=== PATIENT | female | born 1970 | race Caucasian/White ===

== ENCOUNTER 2017-10-30 23:37 | Emergency (ER) | payer MEDICAID ==
[2017-10-30 23:47] VITALS: BP 122/73; PULSE 73; RESP 18; TEMP 98.4; O2SAT 100
--- NOTE | 2017-10-31 00:06 | ED PDOC ---
Lower Extremity Pain/Injury Time Seen by Provider: 10/30/17 23:57 Chief Complaint (Nursing): Lower Extremity Problem/Injury Chief Complaint (Provider): right foot pain History Per: Patient History/Exam Limitations: no limitations Onset/Duration Of Symptoms: Hrs (1) Current Symptoms Are (Timing): Still Present Additional Complaint(s): 47 y/o female presents for evaluation of right foot painx 1 hour. Patient states she was walking down steps and twisted foot/ankle when stepping down. Pain worse with weight-bearing. Denies numbness/weakness right lower extremity. Little relief with Ibuprofen taken prior to arrival. Past Medical History Reviewed: Historical Data, Nursing Documentation, Vital Signs Vital Signs: Last Vital Signs Temp 98.4 F 10/30/17 23:45 Pulse 73 10/30/17 23:45 Resp 18 10/30/17 23:45 BP 122/73 10/30/17 23:45 Pulse Ox 100 10/30/17 23:45 - Medical History PMH: No Chronic Diseases - Surgical History Other surgeries: hysterectomy - Family History Family History: States: No Known Family Hx - Home Medications Home Medications: Ambulatory Orders Medication Instructions Recorded Ibuprofen [Motrin Tab] 1 tab PO Q6 PRN #20 tab 10/31/17 oxyCODONE/Acetaminophen [Percocet 1 ea PO Q6 PRN #12 tab 10/31/17 5/325 mg Tab] - Allergies Allergies/Adverse Reactions: Allergies Allergy/AdvReac Type Severity Reaction Status Date / Time No Known Allergies Allergy Verified 10/30/17 23:44 Review of Systems ROS Statement: Except As Marked, All Systems Reviewed And Found Negative Musculoskeletal: Positive for: Foot Pain (right) Physical Exam - Reviewed Nursing Documentation Reviewed: Yes Vital Signs Reviewed: Yes - Physical Exam Appears: Positive for: Well, Non-toxic, No Acute Distress Pulses-Dorsalis Pedis (L): 2+ Pulses-Dorsalis Pedis (R): 2+ Pulses-Post. Tibialis (L): 2+ Pulses-Post. Tibialis (R): 2+ Extremity: Positive for: Normal ROM, Swelling (swelling/ecchymosis/tenderness dorsal right foot overlying 4th-5th metatarsals. Pain with flexion/extension. Distal NV/motor intact) Neurologic/Psych: Positive for: Alert, Oriented. Negative for: Motor/Sensory Deficits - ECG O2 Sat by Pulse Oximetry: 100 - Other Rad right foot xray X-Ray: Viewed By [place] X-Ray Interpretation: +proximal right 5th metatarsal fx - Progress ED Course And Treament: xray, tylenol Percocet ordered for continued pain Patient evaluated by podiatry resident on-call, placed in splint. Crutches given with demonstration on non-weight bearing. Advised follow up with Dr. Que Robert. Patient educated on findings, discharged with instructions to follow up with podiatry as instructed by resident. Rx percocet, ibuprofen given Advised RICE Return precautions given Disposition - Clinical Impression Clinical Impression: Foot fracture, right - Patient ED Disposition Is Patient to be Admitted: No Counseled Patient/Family Regarding: Studies Performed, Diagnosis, Need For Followup, Rx Given - Disposition Referrals: Micha Jaimes MD [Primary Care Provider] - Que Robert DPM [Medical Doctor] - Disposition: Routine/Home Disposition Time: 02:51 Condition: STABLE Prescriptions: Ibuprofen [Motrin Tab] 1 tab PO Q6 PRN #20 tab PRN Reason: Pain, Moderate (4-7) oxyCODONE/Acetaminophen [Percocet 5/325 mg Tab] 1 ea PO Q6 PRN #12 tab PRN Reason: Pain, Severe (8-10) Instructions: Foot Fracture (DC) Forms: [facility] (Sinhala)
[2017-10-31] MEDS ORDERED: Oxycodone/Acetaminophen 5/325 mg Tab PO ONE (00:52)
[2017-10-31] MEDS ORDERED: Oxycodone/Acetaminophen 5/325 mg Tab ONE (00:55)
--- NOTE | 2017-10-31 02:50 | CP.PCM.CON ---
History of Present Illness - History of Present Illness History of Present Illness: Podiatry Consult Note: Dr. Robert 47 year old female with no significant PMHx was seen and evaluated at bedside for right foot pain. Patient reports that around 6 PM she was walking down the stairs and she tripped, twisted her foot and fell. Patient reports that in the beginning she was in a lot of pain and she took motrin which helped her a little with the pain and decided not to come to the hospital right away. Reports that overtime pain started getting worst and decided to change her mind and come to the ED. Patient reports that she did not walk on the foot after the injury. Denies of any other pedal complains at this time. Denies of having recent F/N/V/C/SOB/CP/headache/diarrhea. PMHx: Denies PSHx: hysterectomy Allergies: N.K.D.A SHx: Denies smoking, EtOH or illicit drug usage Review of Systems - Constitutional Constitutional: As Per HPI Past Patient History - Past Social History Smoking Status: Never Smoked - HEMATOLOGICAL/ONCOLOGICAL Hx Anemia: Yes Hx Blood Transfusions: Yes - PSYCHIATRIC Hx Substance Use: No - SURGICAL HISTORY Hx Hysterectomy: Yes - ANESTHESIA Hx Anesthesia: Yes Hx Anesthesia Reactions: No Hx Malignant Hyperthermia: No Meds Home Medications: Home Medication List Medication Instructions Recorded Confirmed Type Ibuprofen [Motrin Tab] 1 tab PO Q6 PRN #20 tab 10/31/17 Rx oxyCODONE/Acetaminophen [Percocet 1 ea PO Q6 PRN #12 tab 10/31/17 Rx 5/325 mg Tab] Allergies/Adverse Reactions: Allergies Allergy/AdvReac Type Severity Reaction Status Date / Time No Known Allergies Allergy Verified 10/30/17 23:44 Physical Exam - Constitutional Appears: Well, Non-toxic, No Acute Distress - Head Exam Head Exam: ATRAUMATIC - Extremities Exam Additional comments: Bilateral LE exam: VASC: DP/PT pulses are palpable 2/4, Cap refill time: < 3 sec to all digits, Temp gradient: warm to cool from proximal to distal, moderate non-pitting edema noted localized to the right dorsal foot DERM: No open lesions, no erythema, no clinical suspicion of active infection NEURO: Protective sensation grossly intact ORTHO: Pain on direct palpation over the base of the 5th metatarsal and styloid process, Patient is able to perform AROM at the ankle joint in all 4 direction with pain localized to the 5th metatarsal base, guarding during PROM at the ankle joint, MMT: 3/5 during DF, PF, inversion and eversion, no pain on palpation of the achilles tendon insertion or in the watershed area, no pain on palpation of the medial or lateral collateral ligament at the ankle joint, no pain on tib-fib squeeze test, prett test is negative - Neurological Exam Neurological exam: Alert, Oriented x3 - Psychiatric Exam Psychiatric exam: Normal Affect, Normal Mood Results - Vital Signs Recent Vital Signs: Last Vital Signs Temp 98.4 F 10/30/17 23:45 Pulse 73 10/30/17 23:45 Resp 18 10/30/17 23:45 BP 122/73 10/30/17 23:45 Pulse Ox 100 10/31/17 00:58 Assessment & Plan - Assessment and Plan (Free Text) Assessment: 47 year old female with no significant PMHx evaluated at bedside for right foot Vogt fracture Plan: Patient seen and evaluated Discussed plan with attending Dr. Robert X-rays of the right foot ordered/reviewed - transverse radiolucent line extending from medial to lateral with moderate gapping with no displacement noted at the metaphyseal-diapheseal junction of the 5th metatarsal base consistent with Vogt fracture pattern Vogt compression dressing applied Well padded posterior splint applied to the RLE Patient educated to remain NWB to the RLE using crutches Crutches dispensed Patient educated of the RICE protocol Educated to take anti-inflammatory if needed Patient educated of the treatment plan and possible need for the surgery Patient educated the importance of following up with the attending without fail Patient demonstrated verbal understanding of the plan - agrees with the plan Thank you for this interesting podiatry consult and allowing to take part in patient care - Date & Time Date: 10/31/17 Time: 02:10
--- NOTE | 2017-10-31 09:16 | RAD ---
PROCEDURE: Right Foot Radiographs. HISTORY: fall, pain 4th-5th metatarsals COMPARISON: None. FINDINGS: BONES: A minimally comminuted fracture - 5th metatarsal base with tarsal metacarpal intra-articular extension present. Plantar and Achilles Tendon insertion calcaneal spurs JOINTS: 1st metatarsal joint space narrowing -osteoarthrosis hallux valgus orientation. . Sesamoid bones laterally oriented SOFT TISSUES: Swelling over fracture OTHER FINDINGS: None. IMPRESSION: Fifth metatarsal base minimally comminuted fracture with intra-articular extension. No displacement.
== END 2017-10-31 03:08 | disposition home or self-care (01) ==
LOC: H.ER 23:37
DX: S92.901A Unspecified fracture of right foot, initial encounter for closed fracture (principal); W01.0XXA Fall on same level from slipping, tripping and stumbling without subsequent striking against object, initial encounter; Y92.89 Other specified places as the place of occurrence of the external cause; D64.9 Anemia, unspecified

== ENCOUNTER 2017-11-14 10:39 | Day surgery (SDC) | payer MEDICAID ==
[2017-11-08 08:50] VITALS: BMI 29.2
[2017-11-14] MEDS ORDERED: Bupivacaine 0.25% Inj(30mL) IJ ONE (11:20)
[2017-11-14] MEDS ORDERED: ceFAZolin 1 GM in Sodium Chloride 0.9% 100 ML IVPB ONE (11:20)
[2017-11-14] MEDS ORDERED: Lidocaine 1% Inj (20ml) IJ ONE ×3 (11:20→15:10)
[2017-11-14] MEDS ORDERED: Sodium Chloride 0.9% 1,000 ML IV SCH (11:30)
--- NOTE | 2017-11-14 11:34 | CP.PCM.PN ---
Subjective - Date & Time of Evaluation Date of Evaluation: 11/14/17 Time of Evaluation: 11:30 - Subjective Subjective: 47 year old female with PMHx of hypertension was seen and evaluated at bedside for right foot pain. Patient reports she walking up the stairs and she tripped, twisted her foot and fell on Saturday 11/11. Patient reports that in the beginning she was in a lot of pain and she took motrin which helped her a little with the pain, but decided to come to the ED later that evening due to worsening pain. Patients posterior splint and dressing is seen to be dry, clean and intact. Denies of any other pedal complains at this time. Patient denies eating anything after midnight. Denies of having recent F/N/V/C/SOB/CP/headache/ diarrhea. Medications: Losartan PSHx: hysterectomy, 3 . Allergies: N.K.D.A SHx: Denies smoking, EtOH or illicit drug usage Objective - Vital Signs/Intake and Output Vital Signs (last 24 hours): Temp Pulse Resp BP Pulse Ox 98.2 F 80 18 135/90 95 11/14/17 11:21 11/14/17 11:21 11/14/17 11:21 11/14/17 11:21 11/14/17 11:21 - Medications Medications: Current Medications Bupivacaine HCl (Marcaine 0.25%) 20 ml IJ ONCE ONE Stop: 11/14/17 11:21 Cefazolin Sodium 1 gm/ Sodium (Chloride) 100 mls @ 100 mls/hr IVPB ONCE ONE PRN Reason: Protocol Stop: 11/14/17 12:19 Sodium Chloride (Sodium Chloride 0.9%) 1,000 mls @ 0 mls/hr IV .Q0M SANDRA PRN Reason: As Directed Stop: 11/15/17 11:21 Lidocaine HCl (Lidocaine 1% (20ml)) 20 ml IJ ONCE ONE Stop: 11/14/17 11:21 - Constitutional Appears: Well, Non-toxic, No Acute Distress - Head Exam Head Exam: ATRAUMATIC, NORMOCEPHALIC - Extremities Exam Additional comments: Right LE exam: VASC: DP/PT pulses are palpable 2/4, Cap refill time: < 3 sec x5, Temp gradient : warm to cool from proximal to distal, mild non-pitting edema noted localized to the right dorsal aspect of the foot DERM: No open lesions, no erythema, no clinical suspicion of active infection NEURO: Protective sensation grossly intact ORTHO: Pain on direct palpation over the base of the 5th metatarsal and styloid process, Patient is able to perform AROM at the ankle joint in all 4 direction with pain localized to the 5th metatarsal base, guarding during PROM at the ankle joint, MMT: 3/5 during DF, PF, inversion and eversion, no pain on palpation of the achilles tendon insertion or in the watershed area, no pain on palpation of the medial or lateral collateral ligament at the ankle joint, no pain on tib-fib squeeze test, rodriguez test is negative - Neurological Exam Neurological Exam: Alert, Awake, Oriented x3 - Psychiatric Exam Psychiatric exam: Normal Affect, Normal Mood Assessment and Plan - Assessment and Plan (Free Text) Assessment: 47 year old female with pmhx of hypertension evaluated at bedside for right foot fifth metatarsal base fracture, Vogt fracture Plan: Pt was seen and examined in SDS Pt NPO status was confirmed All pre-op testing and clearance in chart Pt has exhausted all conservative treatment at this time and is opting for surgical intervention Pt was explained procedure and post-operative course All pt's questions were answered to satisfaction No guarantees were made Pt understands all risks, benefits and complications of procedure Pt will follow-up with Dr. Robert within 1 week of surgery
--- NOTE | 2017-11-14 11:48 | CP.PCM.PN ---
Subjective - Date & Time of Evaluation Date of Evaluation: 11/14/17 Time of Evaluation: 11:46 - Subjective Subjective: 47 year old female with PMHx of hypertension was seen and evaluated at bedside for right foot pain. Patient reports she walking up the stairs and she tripped, twisted her foot and fell on Saturday 11/11. Patient reports that in the beginning she was in a lot of pain and she took motrin which helped her a little with the pain, but decided to come to the ED later that evening due to worsening pain. Patients posterior splint and dressing is seen to be dry, clean and intact. Denies of any other pedal complains at this time. Patient denies eating anything after midnight. Denies of having recent F/N/V/C/SOB/CP/headache/ diarrhea. Medications: Losartan PSHx: hysterectomy, 3 . Allergies: N.K.D.A SHx: Denies smoking, EtOH or illicit drug usage Objective - Vital Signs/Intake and Output Vital Signs (last 24 hours): Temp Pulse Resp BP Pulse Ox 98.2 F 80 18 135/90 95 11/14/17 11:21 11/14/17 11:29 11/14/17 11:21 11/14/17 11:21 11/14/17 11:21 - Medications Medications: Current Medications Bupivacaine HCl (Marcaine 0.25%) 20 ml IJ ONCE ONE Stop: 11/14/17 11:21 Cefazolin Sodium 1 gm/ Sodium (Chloride) 100 mls @ 100 mls/hr IVPB ONCE ONE PRN Reason: Protocol Stop: 11/14/17 12:19 Sodium Chloride (Sodium Chloride 0.9%) 1,000 mls @ 0 mls/hr IV .Q0M SANDRA PRN Reason: As Directed Stop: 11/15/17 11:21 Lidocaine HCl (Lidocaine 1% (20ml)) 20 ml IJ ONCE ONE Stop: 11/14/17 11:21 - Constitutional Appears: Well, Non-toxic, No Acute Distress - Head Exam Head Exam: ATRAUMATIC, NORMOCEPHALIC - Extremities Exam Extremities Exam: absent: Calf Tenderness Additional comments: Right LE exam: VASC: DP/PT pulses are palpable 2/4, Cap refill time: < 3 sec x5, Temp gradient : warm to cool from proximal to distal, mild non-pitting edema noted localized to the right dorsal aspect of the foot DERM: No open lesions, no erythema, no clinical suspicion of active infection NEURO: Protective sensation grossly intact ORTHO: Pain on direct palpation over the base of the 5th metatarsal and styloid process, Patient is able to perform AROM at the ankle joint in all 4 direction with pain localized to the 5th metatarsal base, guarding during PROM at the ankle joint, MMT: 3/5 during DF, PF, inversion and eversion, no pain on palpation of the achilles tendon insertion or in the watershed area, no pain on palpation of the medial or lateral collateral ligament at the ankle joint, no pain on tib-fib squeeze test, rodriguez test is negative - Neurological Exam Neurological Exam: Alert, Awake, Normal Gait, Oriented x3 - Psychiatric Exam Psychiatric exam: Normal Affect, Normal Mood - Skin Skin Exam: Normal Color Assessment and Plan - Assessment and Plan (Free Text) Assessment: 47 year old female with pmhx of hypertension evaluated at bedside for right foot fifth metatarsal base fracture, Vogt fracture Plan: Pt was seen and examined in SDS Pt NPO status was confirmed All pre-op testing and clearance in chart Pt has exhausted all conservative treatment at this time and is opting for surgical intervention Pt was explained procedure and post-operative course All pt's questions were answered to satisfaction No guarantees were made Pt understands all risks, benefits and complications of procedure Pt will follow-up with Dr. Robert within 1 week of surgery
--- NOTE | 2017-11-14 11:49 | CP.SDSHP ---
Same Day Surgery H & P - History Proposed Procedure: ORIF of base of fifth metatarsal R foot. Pre-Op Diagnosis: right foot fifth metatarsal base fracture, Vogt fracture - Previous Medical/Surgical History Pain: 4.Moderate Pain - Allergies Allergies: Allergies No Known Allergies Allergy (Verified 11/14/17 11:19) - Physical Exam Vital Signs: Vital Signs 11/14/17 11/14/17 11:21 11:29 Temperature 98.2 F Pulse Rate 80 80 Respiratory 18 Rate Blood Pressure 135/90 O2 Sat by Pulse 95 Oximetry - {Optional Preform as Required} Integument: WNL - Impression Pt. Evaluated Today:Candidate for Anesthesia & Procedure: Yes - Date & Time Date: 11/14/17 Time: 11:49 Short Stay Discharge - Short Stay Discharge Admitting Diagnosis/Reason for Visit: S92.351A Additional Instructions (Diet, Activity): -Patient in good/stable condition for discharge home -Pt to resume medications per medical reconciliation -Resume regular diet Please keep dressing clean, dry, & intact to surgical site -Use plastic bag over bandage for showering -Wear post op shoe at all times when ambulating -Call clinic if you see signs of infection (redness, swelling, malodor) -Please make an appointment to see Dr. Robert in office/clinic within 1 week for post-op check Progress Note/Discharge Note with Instructions: - Patient evaluated bedside in recovery s/p surgical procedure. - After surgical procedure patient in NAD - (+) Void, (+) Appetite - Capillary refill time <3s and NVSI intact. - Patient denies complaints at this time - Post operative instructions and plan of care explained to patient at length. - Pt. acknowledges understanding. - Patient stable for DC per podiatric surgery
[2017-11-14] MEDS ORDERED: Midazolam 2 MG/2 ML VIAL ONE (14:57)
[2017-11-14] MEDS ORDERED: Propofol 10 mg/ml Inj (20 ML) ONE (14:57)
[2017-11-14] MEDS ORDERED: Lidocaine 4% MPF 5 ML IJ ONE (14:57)
[2017-11-14] MEDS ORDERED: Lactated Ringer's 1,000 ML IV ONE (15:05)
[2017-11-14] MEDS ORDERED: Bupivacaine HCl 0.25% PF (30 ml) Inj IJ ONE ×2 (15:10)
[2017-11-14] MEDS ORDERED: Sevoflurane - Inhalation Anesthetic Liq (250 ml) ONE (16:09)
[2017-11-14] MEDS ORDERED: Oxycodone/Acetaminophen 5/325 mg Tab PO PRN ×2 (16:55)
--- NOTE | 2017-11-14 16:59 | PCM.SURG1 ---
Surgeon's Initial Post Op Note - Surgeon's Notes Surgeon: Dr. Robert Graphotype Operator: Dr. Velez, Dr. Johnson, Dr. Shrestha Type of Anesthesia: General LMA, Local Anesthesia Administered By: Dr. Marroquin Pre-Operative Diagnosis: Right 5th metatarsal ruggiero Fracture Operative Findings: see dictation. I: pre-op 10 cc 1:1 1% Lidocaine, 0.25% Marcaine. intra op 5 cc 0.25% Marcaine plain. post-op 10 cc 0.25% Marcaine plain. M: 4-0 prolene, 4-0 vicryl, 40 mm 4.5 cancellous screw Post-Operative Diagnosis: same Operation Performed: 5th metatarsal Ruggiero fracture ORIF of proximal base fractures Specimen/Specimens Removed: none Estimated Blood Loss: EBL {In ML}: 2 Blood Products Given: N/A Drains Used: No Drains Post-Op Condition: Good Date of Surgery/Procedure: 11/14/17 Time of Surgery/Procedure: 16:59
[2017-11-14] MEDS ORDERED: HYDROmorphone 0.5 mg/0.5 ml ISec IVP PRN (17:00)
--- NOTE | 2017-11-14 17:53 | RAD ---
PROCEDURE: Intraoperative Fluoroscopy. HISTORY: RIGHT FOOT FINDINGS: Fluoroscopic assistance was provided for fracture repair 5th metatarsal.. Please refer to the operative report from [facility]. Total fluoroscopic time (continuous mode) utilized during the procedure (seconds) 131.8. Total exam DLP: (mGy) 1.76.
[2017-11-14] MEDS ORDERED: Oxycodone/Acetaminophen 5/325 mg Tab PO ONE (19:40)
[2017-11-14 23:57] VITALS: BP 145/86; PULSE 94; RESP 20; TEMP 98.4; O2SAT 98
--- NOTE | 2017-11-18 20:19 | OP ---
PROCEDURE DATE: 11/14/2017 PREOPERATIVE DIAGNOSIS: Right foot fifth metatarsal fracture. POSTOPERATIVE DIAGNOSIS: Right foot fifth metatarsal fracture. PROCEDURE: Right foot fifth metatarsal open reduction and internal fixation. SURGEON: Que Robert DPM SOLUTION ANALYST: Alejandra Velez DPM, , and Neo Johnson DPM. TYPE OF ANESTHESIA: General. ANESTHESIA ADMINISTERED BY: Dr. Marroquin. INDICATIONS: The patient is 47-year-old female with the above-mentioned diagnosis. The patient is being treated by Dr. Robert in the office on an outpatient basis where she has exhausted multiple forms of conservative treatment. The patient seeks surgical intervention at this time. All risks, benefits, and possible complications to the proposed procedure have been explained to the patient at length. The patient verbalizes understanding and wishes to proceed. All questions were answered. No guarantees were given nor implied. Consent was signed and n.p.o. status was confirmed prior to bringing the patient to the operating room. OPERATIVE PROCEDURE: The patient was brought into the operating room and placed on the operative room table in a supine position. A well-padded pneumatic ankle tourniquet was applied to the patient's right ankle in supramalleolar position. Once anesthesia was achieved, a local injection consisting of 10 mL of 1:1 mixture of 1% lidocaine plain and 0.5% Marcaine plain was given in a local block fashion to the patient's right foot. Once the local anesthesia was achieved, the foot was then prepped and draped in the usual sterile manner and the procedure began. PROCEDURE 1: Right fifth metatarsal ORIF. Attention was directed to the lateral aspect of the right foot at the base of the fifth metatarsal and approximately 2 cm linear longitudinal incision was made to the right fifth metatarsal phalangeal base where the fracture was located under fluoroscopic guidance. The incision was deepened to the subcutaneous tissue using a combination of sharp and blunt dissection. Care was taken to identify and retract all other neurovascular structures. All bleeders were cauterized and ligated as necessary. At this time, a K-wire was placed across the osteotomy site. Next, the site was then drilled and then tapped. Next, a screw was placed across the fracture site with an excellent compression noted and the fracture was noted to be in anatomical alignment using fluoroscopic guidance. The surgical site was then irrigated with copious amounts of normal sterile saline. Subcutaneous tissue was closed using 4-0 Vicryl. The skin was reapproximated with #4-0 Prolene. Postoperative dressings included Betadine, Adaptic, 4 x 4 Jose and a well-padded [id number] cast . Postoperative injections consisting of 15 mL of 0.5% Marcaine plain was given in a local block fashion. POSTOPERATIVE CONDITION: The patient tolerated the anesthesia and procedure well with no apparent complications or complaints. The patient was escorted from the operating room to the recovery room with vital signs stable and neurovascular structures intact. The patient will follow up with Dr. Robert in the office on an outpatient basis. Alejandra Velez DPM
== END 2017-11-14 22:30 | disposition home or self-care (01) ==
LOC: H.OPSURG 10:39 → H.PEDS 21:06 → H.OPSURG 22:30
PROVIDERS: ATTEND Student in an Organized Health Care Education/Training Program
DX: S92.351A Displaced fracture of fifth metatarsal bone, right foot, initial encounter for closed fracture (principal); I10 Essential (primary) hypertension; W01.0XXA Fall on same level from slipping, tripping and stumbling without subsequent striking against object, initial encounter
CPT/HCPCS: 28485; 97161; G8978; G8979; G8980; J0690; J2250; J2704; J3010; J7120

== ENCOUNTER 2018-01-05 02:12 | Observation (INO) | payer MEDICAID ==
[2018-01-05 02:12] VITALS: BMI 29.2
--- NOTE | 2018-01-05 03:06 | ED PDOC ---
HPI: Chest Pain Time Seen by Provider: 01/05/18 02:37 Chief Complaint (Nursing): Chest Pain Chief Complaint (Provider): Chest Pain History Per: Patient History/Exam Limitations: no limitations Onset/Duration Of Symptoms: Hrs (x2) Additional Complaint(s): Patient is a 47 y/o female with history of hypertension and anemia, who presents to the ED complaining of chest pain associated with left shoulder pain , onset x2 hours ago. Patient states she was sleeping and awoke around 01:00 feeling pain in the middle of her chest and a twisting sensation in her left shoulder. Patient states she took Advil and a "pain killer" but was unable to identify it by name. Patient also reports she has difficulty breathing. She has no other medical complaints. PMD: [place] Past Medical History Reviewed: Historical Data, Nursing Documentation, Vital Signs Vital Signs: Last Vital Signs Temp 97.8 F 01/06/18 12:00 Pulse 71 01/06/18 12:00 Resp 20 01/06/18 12:00 BP 142/88 01/06/18 12:00 Pulse Ox 95 01/06/18 12:00 - Medical History PMH: Anemia, HTN Denies: Chronic Kidney Disease - Surgical History Surgical History: Other surgeries: Right foot surgery - Family History Family History: States: Unknown Family Hx - Home Medications Home Medications: Ambulatory Orders Medication Instructions Recorded Losartan [Cozaar] 50 mg PO DAILY 11/11/17 Levofloxacin [Levaquin] 500 mg PO DAILY #7 tablet 01/06/18 - Allergies Allergies/Adverse Reactions: Allergies Allergy/AdvReac Type Severity Reaction Status Date / Time No Known Allergies Allergy Verified 01/05/18 02:26 JAYSHREE Risk Score for UA/NSTEMI - JAYSHREE Risk Score Age > 64: NO 3 or more CAD Risk Factors: NO Known CAD (Stenosis greater than 50%): NO Aspirin use in past 7 days: NO Severe Angina: YES EKG ST changes greater than 0.5mm: NO Positive Cardiac Marker: NO JAYSHREE Score: 1 Risk %: 5% Wells Criteria for PE - Wells Criteria for Pulmonary Embolism Clinical Signs and Symptoms of DVT: No P.E is #1 Diagnosis, or Equally Likely: No Heart Rate >100: No Immobilization at least 3 days;Surgery previous 4 weeks: No Previous, objectively diagnosed PE or DVT: No Hemoptysis: No Malignancy w/treatment within 6 months, or palliative: No Total Score: 0 Review of Systems ROS Statement: Except As Marked, All Systems Reviewed And Found Negative Constitutional: Negative for: Fever Cardiovascular: Positive for: Chest Pain Respiratory: Positive for: Shortness of Breath (diffiuclty breathing) Musculoskeletal: Positive for: Shoulder Pain (left) Physical Exam - Reviewed Nursing Documentation Reviewed: Yes Vital Signs Reviewed: Yes - Physical Exam Appears: Positive for: Non-toxic, No Acute Distress Head Exam: Positive for: ATRAUMATIC, NORMOCEPHALIC Skin: Positive for: Normal Color, Warm, Dry Eye Exam: Positive for: EOMI, Normal appearance, PERRL Neck: Positive for: Normal, Painless ROM, Supple Cardiovascular/Chest: Positive for: Regular Rate, Rhythm, Chest Non Tender. Negative for: Murmur Respiratory: Positive for: Normal Breath Sounds. Negative for: Respiratory Distress Gastrointestinal/Abdominal: Positive for: Normal Exam, Soft. Negative for: Tenderness Extremity: Positive for: Normal ROM. Negative for: Pedal Edema, Deformity Neurologic/Psych: Positive for: Alert, Oriented. Negative for: Motor/Sensory Deficits - Laboratory Results Result Diagrams: 01/06/18 04:20 01/06/18 04:20 - ECG ECG Rhythm: Positive for: Normal QRS, Normal ST Segment, Sinus Rhythm Rate: 73 O2 Sat by Pulse Oximetry: 95 (RA) Pulse Ox Interpretation: Normal Medical Decision Making Medical Decision Making: Time: 03:06 Impression: chest pain Differential includes ACS, PE Initial Plan: EKG BMP Troponin I CBC w/ diff D Dimer Time: 04:20 --CT angio ordered Time: 05:23 CT Angio FINDINGS: Artifacts: Limited due to motion and misregistration artifacts.Limited due to pulsation artifact. Pulmonary arteries: No evidence for central pulmonary embolus. The peripheral branch pulmonary arteries are degraded by motion artifact and heterogeneous enhancement. Aorta: Normal. No aortic aneurysm. No aortic dissection. Lungs: Bibasilar right middle lobe and lingular nonspecific infiltrates and consolidation are present, consistent with atelectasis or pneumonia. Pleural space: Normal. No pneumothorax. No pleural effusion. Heart: Small pericardial effusion. Bones/joints: Unremarkable. No acute fracture. Soft tissues: Unremarkable. Lymph nodes: Bilateral axillary lymph nodes. Liver: Enlarged fatty liver. Gallbladder and bile ducts: The gallbladder is not well-seen. Possible gallstones. Spleen: Splenomegaly measuring 15 cm. Adrenals: The adrenal glands are not completely visualized. IMPRESSION: 1. Bibasilar right middle lobe and lingular nonspecific infiltrates and consolidation are present, consistent with atelectasis or pneumonia. 2. No CT evidence for pulmonary embolus Scribe Attestation: Documented by Michael Jeong acting as a scribe for Little Nguyen MD. Provider Scribe Attestation: All medical record entries made by the Scribe were at my direction and personally dictated by me. I have reviewed the chart and agree that the record accurately reflects my personal performance of the history, physical exam, medical decision making, and the department course for this patient. I have also personally directed, reviewed, and agree with the discharge instructions and disposition. Disposition - Clinical Impression Clinical Impression: Chest pain, Pneumonia - Patient ED Disposition Is Patient to be Admitted: Yes Discussed With : Micha Jaimes Doctor Will See Patient In The: Hospital Counseled Patient/Family Regarding: Studies Performed, Diagnosis - Disposition Disposition Time: 06:00 Condition: FAIR - Pt Status Changed To: Hospital Disposition Of: Observation - POA Present On Arrival: None
[2018-01-05 03:20] LABS: BASO % 0.3 % (0.0-2.0); EOS # 0.2 K/uL (0.0-0.7); EOS % 3.5 % (0.0-4.0); HEMOGLOBIN 12.9 g/dL (12.0-16.0); LYMPH # 1.1 K/uL (1.0-4.3); LYMPH % 19.4 % (20.0-40.0); MEAN CELL VOLUME 76.9 fl (81.0-99.0); MEAN CORPUSCULAR HEMOGLOBIN 25.5 pg (27.0-31.0); MEAN CORPUSCULAR HGB CONC 33.1 g/dL (33.0-37.0); MONO # 0.3 K/uL (0.0-0.8); MONO % 6.3 % (0.0-10.0); NEUT # 3.9 K/uL (1.8-7.0); NEUT % 70.5 % (50.0-75.0); NRBC % 0.1 % (0.0-0.0); RBC 5.05 Mil/uL (3.80-5.20); RED CELL DISTRIBUTION WIDTH 15.8 % (11.5-14.5); WHITE BLOOD COUNT 5.5 K/uL (4.8-10.8)
[2018-01-05 03:32] LABS: BLOOD UREA NITROGEN 13 mg/dl (7-17); CALCIUM 9.1 mg/dL (8.4-10.2); GFR NON-AFRICAN AMERICAN > 60
[2018-01-05] MEDS ORDERED: Sodium Chloride 0.9% 50 ML IV ONE (04:09)
[2018-01-05] MEDS ORDERED: Iodixanol 320 MG/ML 100 ML BOTTLE IV ONE (04:09)
[2018-01-05] MEDS ORDERED: Azithromycin 500 MG in Sodium Chloride 0.9% 250 ML IVPB STA (05:27)
[2018-01-05] MEDS ORDERED: Azithromycin 500 MG IV IVPB ONE (05:49)
[2018-01-05] MEDS ORDERED: cefTRIAXone (Rocephin) 1 gm Inj ONE (05:49)
[2018-01-05] MEDS ORDERED: Albuterol-Ipratrop 3 mg / 0.5 (3 ml) UD INH PRN (09:49)
[2018-01-05] MEDS ORDERED: Albuterol-Ipratrop 3 mg / 0.5 (3 ml) UD ONE (09:53)
--- NOTE | 2018-01-05 11:53 | CARD ---
APPROVED REPORT Date of service: 01/05/2018 EKG Measurement Heart [id number] <Conclusion> Normal sinus rhythm prolonged QT abnormal ECG
--- NOTE | 2018-01-05 11:55 | CT ---
Date of service: 01/05/2018 PROCEDURE: CT Chest with contrast (Pulmonary Angiogram) HISTORY: chest pain COMPARISON: Correlation with chest radiographs dated 11/05/2017. TECHNIQUE: Axial computed tomography images were obtained of the chest in the pulmonary arterial phase of enhancement. Coronal and sagittal reformatted images were created and reviewed. Intravenous contrast dose: 98 cc Visipaque 320 Radiation dose: Total exam DLP = 300.03 mGy-cm. This CT exam was performed using one or more of the following dose reduction techniques: Automated exposure control, adjustment of the mA and/or kV according to patient size, and/or use of iterative reconstruction technique. FINDINGS: PULMONARY ARTERIES: Note that evaluation the pulmonary arteries are somewhat limited due to suboptimal opacification, cardiac motion and large body habitus. The visualized pulmonary trunk, right and left main, lobar, segmental and the proximal subsegmental branches of the pulmonary arteries are relatively well opacified with no definitive filling defects seen to suggest acute central pulmonary embolus. Pulmonary trunk measures approximately 2.35 cm. AORTA: No acute findings. No thoracic aortic aneurysm. Ascending thoracic aorta measures approximately 3.25 cm and descending thoracic aorta measures approximately 2.2 cm. LUNGS: Mild passive/dependent type atelectasis both posterior lower lung had[place]. Mild linear atelectasis/scarring seen in the left lingular region and right middle lobe. PLEURAL SPACES: Unremarkable. No effusion or pneumothorax. HEART: Borderline -mild cardiomegaly. No significant pericardial effusion. LYMPH NODES: No significant mediastinal or hilar adenopathy. Central airways midline and patent. No large central endoluminal lesions. BONES, CHEST WALL: Minor multilevel degenerative spondylosis of the thoracic spine no acute compression fractures. OTHER FINDINGS: Spleen is mildly enlarged measuring nearly 14 cm in AP dimension. The liver is incompletely visualized along seen for ear border however the liver may be mildly enlarged. Clinical correlation recommended. IMPRESSION: Limited study as described above. No evidence of acute central pulmonary embolus. Minor linear atelectasis and or scarring changes middle lobe and lingular regions. Splenomegaly. The liver is incompletely visualized along its inferior margin however the liver appears mildly enlarged as well; clinical correlation recommended.
--- NOTE | 2018-01-05 11:58 | PCM.RRT ---
I.Reason for BLOOD AND PLASMA LABORATORY ASSISTANT - A) Acute Change in Patient: Subjective: S:BLOOD AND PLASMA LABORATORY ASSISTANT called by RN as pt was noted to have chest pain. Pt described pain as sharp, increased with deep inhalation, non radiating and localized to sternum. Denied SOB or cough. O: BP 147/86, HR 82, Temp 97.7 O2 sat 99% on rm air General: Alert, mild discomfort noted Cardiac: RRR, No murmurs, no rubs Chest wall: Pain non reproducible to palpation Pulm: CTABL, no rales, no wheezing Abdomen: Soft, non tender Ext: no edema, right foot wrapped in bandage BLOOD AND PLASMA LABORATORY ASSISTANT Interventions: -Reviewed prior vitals, labs and imaging -Noted on Chest CT to have right consolidation c/w Atlectasis vs PNU -Pior Tropinin x1 negative -EKG 12 lead Stat: Normal Sinus Rhythm, no ST elevations, or T wave inversions. Path q waves in anterior leads -Duonebs q4 -Ibuprofen 600mg po x1 -Incentive spirometry TID -Serial Troponin x2 -Repeat EKG in 6hr A/P: 47 y/o female w/ no significant cardiac hx admitted for chest pain, BLOOD AND PLASMA LABORATORY ASSISTANT called for pt complaining of chest discomfort. Pleuritic in nature. Vitals wnl. Prior Troponin negative. No acute ischemic changes on EKG. Chest CT significant for right lobe consolidation- Likely atelectasis vs early pnu. Unlikely Cardiac etiology. Will continue with scheduled duonebs and incentive spirometry. F/U serial troponins and repeat EKG in 6 hours. Pain treated with NSAID. Continue to monitor vitals. BLOOD AND PLASMA LABORATORY ASSISTANT MD: Dr. Kirk, Dr. Cook, and myself
[2018-01-05] MEDS: Enoxaparin 40 mg Syringe SC SCH (12:43)
--- NOTE | 2018-01-05 14:57 | CP.PCM.HP ---
History of Present Illness - History of Present Illness History of Present Illness: Patient is a 47 y/o female with history of hypertension and anemia, who presents to the ED complaining of chest pain associated with left shoulder pain , onset x2 hours ago. Patient states she was sleeping and awoke around 01:00 feeling pain in the middle of her chest and a twisting sensation in her left shoulder. Patient states she took Advil and a "pain killer" but was unable to identify it by name. Patient also reports she has difficulty breathing. She has no other medical complaints. Present on Admission - Present on Admission Any Indicators Present on Admission: No History of DVT/PE: No Review of Systems - Constitutional Constitutional: absent: As Per HPI, Anorexia, Chills, Daytime Sleepiness, Excessive Sweating, Fatigue, Fever, Frequent Falls, Headache, Increased Appetite , Lethargy, Malaise, Night Sweats, Snoring, Sleep Apnea, Weight Gain, Weight Loss, Weakness, Other - Cardiovascular Cardiovascular: Chest Pain. absent: As Per HPI, Acrocyanosis, Chest Pain at Rest, Chest Pain with Activity, Claudication, Diaphoresis, Dyspnea, Dyspnea on Exertion, Edema, Irregular Heart Rhythm, Pain Radiating to Arm/Neck/Jaw, Leg Edema, Leg Ulcers, Lightheadedness, Orthopnea, Palpitations, Paroxysmal Nocturnal Dyspnea, Pedal Edema, Radiating Pain, Rapid Heart Rate, Slow Heart Rate, Syncope, Other - Respiratory Respiratory: Cough. absent: As Per HPI, Dyspnea, Hemoptysis, Dyspnea on Exertion, Wheezing, Snoring, Stridor, Pain on Inspiration, Chest Congestion, Excessive Mucous Production, Change in Mucous Color, Pain with Coughing, Other - Gastrointestinal Gastrointestinal: absent: As Per HPI, Abdominal Pain, Belching, Bloating, Change in Bowel Habits, Change in Stool Character, Coffee Ground Emesis, Constipation, Cramping, Diarrhea, Dyspepsia, Dysphagia, Early Satiety, Excessive Flatus, Fecal Incontinence, Heartburn, Hematemesis, Hematochezia, Loose Stools, Melena, Nausea, Odynophagia, Temesmus, Vomiting, Other - Genitourinary Genitourinary: absent: As Per HPI, Change in Urinary Stream, Difficulty Urinating, Dysuria, Flank Pain, Hematuria, Pyuria, Nocturia, Urinary Incontinence, Urinary Frequency, Urinary Hesitance, Urinary Urgency, Voiding Freq/Small Amts, Freq UTI, Hx Renal/Bladder Calculi, Hx /Renal Surgery, Bladder Distension, Other - Neurological Neurological: absent: As Per HPI, Abnormal Gait, Abnormal Hearing, Abnormal Movements, Abnormal Speech, Behavioral Changes, Burning Sensations, Confusion, Convulsions, Disequilibrium, Dizziness, Numbness, Focal Weakness, Frequent Falls , Headaches, Lack of Coordination, Loss of Vision, Memory Loss, Paresthesias, Radicular Pain, Restless Legs, Sensory Deficit, Syncope, Tingling, Tremor, Vertigo, Weakness, Other Visual Disturbances, Other Past Patient History - Past Medical History & Family History Past Medical History?: Yes - Past Social History Smoking Status: Never Smoked - CARDIAC Hx Hypertension: Yes - PULMONARY Hx Respiratory Disorders: No - NEUROLOGICAL Hx Neurological Disorder: No - HEENT Hx HEENT Problems: No - RENAL Hx Chronic Kidney Disease: No - ENDOCRINE/METABOLIC Hx Endocrine Disorders: No - HEMATOLOGICAL/ONCOLOGICAL Hx Anemia: Yes - INTEGUMENTARY Hx Dermatological Problems: No - MUSCULOSKELETAL/RHEUMATOLOGICAL Hx Musculoskeletal Disorders: No Hx Falls: No - GASTROINTESTINAL Hx Gastrointestinal Disorders: No - GENITOURINARY/GYNECOLOGICAL Hx Genitourinary Disorders: No - PSYCHIATRIC Hx Psychophysiologic Disorder: No Hx Emotional Abuse: No Hx Physical Abuse: No Hx Substance Use: No - SURGICAL HISTORY Hx Surgeries: Yes Hx Section: Yes (x3) Hx Hysterectomy: Yes - ANESTHESIA Hx Anesthesia: Yes Hx Anesthesia Reactions: No Hx Malignant Hyperthermia: No Meds Allergies/Adverse Reactions: Allergies Allergy/AdvReac Type Severity Reaction Status Date / Time No Known Allergies Allergy Verified 01/05/18 02:26 Physical Exam - Constitutional Appears: Non-toxic - Head Exam Head Exam: ATRAUMATIC, NORMAL INSPECTION - Eye Exam Eye Exam: EOMI, Normal appearance Pupil Exam: NORMAL ACCOMODATION - ENT Exam ENT Exam: Mucous Membranes Moist - Respiratory Exam Respiratory Exam: Clear to Auscultation Bilateral, NORMAL BREATHING PATTERN - Cardiovascular Exam Cardiovascular Exam: REGULAR RHYTHM - GI/Abdominal Exam GI & Abdominal Exam: Normal Bowel Sounds, Soft - Rectal Exam Rectal Exam: NORMAL INSPECTION - Neurological Exam Neurological exam: Alert Results - Vital Signs Recent Vital Signs: Last Vital Signs Temp 97.8 F 01/05/18 12:16 Pulse 86 01/05/18 12:43 Resp 18 01/05/18 12:16 BP 138/87 01/05/18 12:43 Pulse Ox 98 01/05/18 12:16 - Labs Result Diagrams: 01/05/18 03:10 01/05/18 03:10 Labs: Laboratory Results - last 24 hr 01/05/18 01/05/18 01/05/18 03:10 03:10 03:10 WBC 5.5 RBC 5.05 Hgb 12.9 Hct 38.9 MCV 76.9 L MCH 25.5 L MCHC 33.1 RDW 15.8 H Plt Count 140 MPV 9.0 Neut % (Auto) 70.5 Lymph % (Auto) 19.4 L [place] % (Auto) 6.3 Eos % (Auto) 3.5 Baso % (Auto) 0.3 Neut # (Auto) 3.9 Lymph # (Auto) 1.1 [place] # (Auto) 0.3 Eos # (Auto) 0.2 Baso # (Auto) 0.0 D-Dimer, Quantitative 428 H Sodium 139 Potassium 3.6 Chloride 105 Carbon Dioxide 27 Anion Gap 11 BUN 13 Creatinine 0.5 L Est GFR ( Amer) > 60 Est GFR (Non-Af Amer) > 60 POC Glucose (mg/dL) Random Glucose 120 H Calcium 9.1 Troponin I < 0.0120 01/05/18 01/05/18 09:43 10:15 WBC RBC Hgb Hct MCV MCH MCHC RDW Plt Count MPV Neut % (Auto) Lymph % (Auto) [place] % (Auto) Eos % (Auto) Baso % (Auto) Neut # (Auto) Lymph # (Auto) [place] # (Auto) Eos # (Auto) Baso # (Auto) D-Dimer, Quantitative Sodium Potassium Chloride Carbon Dioxide Anion Gap BUN Creatinine Est GFR ( Amer) Est GFR (Non-Af Amer) POC Glucose (mg/dL) 104 Random Glucose Calcium Troponin I < 0.0120 Assessment & Plan - Assessment and Plan (Free Text) Assessment: chest pain r/o acs anemia pneumonia htn Plan: 1. chest pain r/o acs stable consider cardio 2. anemia cont to monitor hb h/o hysterectomy no transfusion at this time 3. pna rocephin and zithro repeat cxr in am f/u labs nebs 4. htn cont cozaar 5. dvt px lovenox
[2018-01-05 19:46] VITALS: RESP 20
[2018-01-06 05:27] LABS: HEMOGLOBIN 12.8 g/dL (12.0-16.0); MEAN CELL VOLUME 77.3 fl (81.0-99.0); MEAN CORPUSCULAR HEMOGLOBIN 25.5 pg (27.0-31.0); RBC 5.03 Mil/uL (3.80-5.20); RED CELL DISTRIBUTION WIDTH 15.7 % (11.5-14.5); WHITE BLOOD COUNT 4.8 K/uL (4.8-10.8)
[2018-01-06 05:36] LABS: ALB/GLOB RATIO 1.3 (1.0-2.1); ALBUMIN 3.7 g/dL (3.5-5.0); ALT/SGPT 48 U/L (9-52); AST/SGOT 23 U/L (14-36); BLOOD UREA NITROGEN 15 mg/dl (7-17); CALCIUM 8.8 mg/dL (8.4-10.2); GFR NON-AFRICAN AMERICAN > 60
[2018-01-06] MEDS: Enoxaparin 40 mg Syringe SC SCH (08:56)
[2018-01-06] MEDS ORDERED: Pneumococcal 23-Valent Vaccine IM ONE (10:00)
[2018-01-06] MEDS ORDERED: Azithromycin 500 MG in Sodium Chloride 0.9% 250 ML IVPB SCH (10:15)
--- NOTE | 2018-01-06 10:24 | CP.PCM.DIS ---
Provider - Provider Date of Admission: 01/05/18 06:14 Attending physician: MD Micha Vazquez MD Time Spent in preparation of Discharge (in minutes): 30 Diagnosis - Discharge Diagnosis (1) Pneumonia Status: Acute (2) Chest pain Status: Acute Hospital Course - Lab Results Lab Results: Micro Results 01/05/18 05:45 Blood-Venous Blood Culture - Preliminary NO GROWTH AFTER 24 HOURS 01/05/18 06:08 Blood-Venous Blood Culture - Preliminary NO GROWTH AFTER 24 HOURS Most Recent Lab Values WBC 4.8 K/uL (4.8-10.8) 01/06/18 04:20 RBC 5.03 Mil/uL (3.80-5.20) 01/06/18 04:20 Hgb 12.8 g/dL (12.0-16.0) 01/06/18 04:20 Hct 38.9 % (34.0-47.0) 01/06/18 04:20 MCV 77.3 fl (81.0-99.0) L 01/06/18 04:20 MCH 25.5 pg (27.0-31.0) L 01/06/18 04:20 MCHC 33.0 g/dL (33.0-37.0) 01/06/18 04:20 RDW 15.7 % (11.5-14.5) H 01/06/18 04:20 Plt Count 129 K/uL (130-400) L 01/06/18 04:20 MPV 9.0 fl (7.2-11.7) 01/05/18 03:10 Neut % (Auto) 70.5 % (50.0-75.0) 01/05/18 03:10 Lymph % (Auto) 19.4 % (20.0-40.0) L 01/05/18 03:10 [place] % (Auto) 6.3 % (0.0-10.0) 01/05/18 03:10 Eos % (Auto) 3.5 % (0.0-4.0) 01/05/18 03:10 Baso % (Auto) 0.3 % (0.0-2.0) 01/05/18 03:10 Neut # (Auto) 3.9 K/uL (1.8-7.0) 01/05/18 03:10 Lymph # (Auto) 1.1 K/uL (1.0-4.3) 01/05/18 03:10 [place] # (Auto) 0.3 K/uL (0.0-0.8) 01/05/18 03:10 Eos # (Auto) 0.2 K/uL (0.0-0.7) 01/05/18 03:10 Baso # (Auto) 0.0 K/uL (0.0-0.2) 01/05/18 03:10 D-Dimer, Quantitative 428 ng/mlDDU (0-230) H 01/05/18 03:10 Sodium 139 mmol/l (132-148) 01/06/18 04:20 Potassium 3.8 MMOL/L (3.6-5.0) 01/06/18 04:20 Chloride 107 mmol/L (98-107) 01/06/18 04:20 Carbon Dioxide 26 mmol/L (22-30) 01/06/18 04:20 Anion Gap 10 (10-20) 01/06/18 04:20 BUN 15 mg/dl (7-17) 01/06/18 04:20 Creatinine 0.5 mg/dl (0.7-1.2) L 01/06/18 04:20 Est GFR ( Amer) > 60 01/06/18 04:20 Est GFR (Non-Af Amer) > 60 01/06/18 04:20 POC Glucose (mg/dL) 104 mg/dL (65-110) 01/05/18 09:43 Random Glucose 117 mg/dL (65-105) H 01/06/18 04:20 Calcium 8.8 mg/dL (8.4-10.2) 01/06/18 04:20 Total Bilirubin 0.6 mg/dl (0.2-1.3) 01/06/18 04:20 AST 23 U/L (14-36) 01/06/18 04:20 ALT 48 U/L (9-52) 01/06/18 04:20 Alkaline Phosphatase 46 U/L (38-126) 01/06/18 04:20 Troponin I < 0.0120 ng/mL (0.00-0.120) 01/05/18 18:05 Total Protein 6.4 G/DL (6.3-8.2) 01/06/18 04:20 Albumin 3.7 g/dL (3.5-5.0) 01/06/18 04:20 Globulin 2.7 gm/dL (2.2-3.9) 01/06/18 04:20 Albumin/Globulin Ratio 1.3 (1.0-2.1) 01/06/18 04:20 Discharge Exam - Head Exam Head Exam: ATRAUMATIC, NORMAL INSPECTION - Eye Exam Eye Exam: Normal appearance Pupil Exam: NORMAL ACCOMODATION - ENT Exam ENT Exam: Mucous Membranes Moist - Respiratory Exam Respiratory Exam: Clear to PA & Lateral, NORMAL BREATHING PATTERN, UNREMARKABLE - Cardiovascular Exam Cardiovascular Exam: REGULAR RHYTHM - GI/Abdominal Exam GI & Abdominal Exam: Normal Bowel Sounds, Soft, Unremarkable - Extremities Exam Extremities exam: full ROM - Neurological Exam Neurological exam: Alert, Oriented x3 Discharge Plan - Follow Up Plan Condition: GOOD Disposition: HOME/ ROUTINE Additional Instructions: d/c home today levaquin 500 x 7 days albuterol hfa prn f/u in pmd office in 2 days.
[2018-01-06 12:12] VITALS: BP 142/88; TEMP 97.8; O2SAT 95
--- NOTE | 2018-01-06 18:13 | CARD ---
APPROVED REPORT Date of service: 01/05/2018 <Conclusion> Normal sinus rhythm Septal infarct, age undetermined Abnormal ECG
[2018-01-06 18:20] VITALS: PULSE 73
== END 2018-01-06 13:47 | disposition home or self-care (01) ==
LOC: H.ER 02:12 → H.ERHOLD 06:14 → H.TEL 07:15
PROVIDERS: ADMIT Family Medicine; ATTEND Family Medicine
DX: J18.9 Pneumonia, unspecified organism (principal); Z90.710 Acquired absence of both cervix and uterus; Z98.891 History of uterine scar from previous surgery; D64.9 Anemia, unspecified; I10 Essential (primary) hypertension
CPT/HCPCS: 36415; 71275; 80048; 80053; 82948; 84484; 85025; 85027; 85378; 87040; 93005; 99285; G0378; J0456; J0696; J1650; Q9967